=== PATIENT | female | born 1950 | race Two or more races ===

== ENCOUNTER 2017-07-30 19:10 | Emergency (ER) | payer OTHER ==
[~2017-07-30] VITALS: Ht 170.2 cm; Wt 57.2 kg
[2017-07-30 19:15] VITALS: BP 126/98
[2017-07-30] MEDS ORDERED: IPRATROPIUM BROM 0.5 MG/2.5ML INH SOL NEB ONE (19:30)
[2017-07-30] MEDS ORDERED: ALBUTEROL SULF 2.5 MG/0.5ML(0.5%) NEB SOLN NEB ONE (19:30)
== END 2017-07-30 21:28 | disposition left against medical advice (07) ==
LOC: ER 19:10
DX: R06.02 Shortness of breath (principal); Z53.21 Procedure and treatment not carried out due to patient leaving prior to being seen by health care provider
CPT/HCPCS: 93005; 94640